=== PATIENT | female | born 1955 | race Caucasian/White ===

== ENCOUNTER 2019-07-18 06:00 | Outpatient (RCR) | payer MEDICARE, SELFPAY | END 2019-08-17 00:01 | LOC: SPT 06:00 | PROVIDERS: Family Provider Electrodiagnostic Medicine; Visit Provider Orthopaedic Surgery | DX: Z47.1 Aftercare following joint replacement surgery (principal); Z96.651 Presence of right artificial knee joint; M25.561 Pain in right knee; R26.89 Other abnormalities of gait and mobility; M25.661 Stiffness of right knee, not elsewhere classified | CPT/HCPCS: 97110 ×6 ==

== ENCOUNTER 2019-08-18 06:00 | Outpatient (RCR) | payer MEDICARE, SELFPAY | END 2019-08-25 23:00 | disposition home or self-care (01) | LOC: SPT 06:00 | PROVIDERS: Family Provider Electrodiagnostic Medicine; Visit Provider Orthopaedic Surgery | DX: Z47.1 Aftercare following joint replacement surgery (principal); Z96.651 Presence of right artificial knee joint | CPT/HCPCS: 97110 ==

== ENCOUNTER → 2019-09-08 13:05 | Outpatient (BNVA) | payer MEDICARE, SELFPAY | PROVIDERS: Family Provider Electrodiagnostic Medicine; Visit Provider Orthopaedic Surgery | DX: M25.562 Pain in left knee (principal) | CPT/HCPCS: 73560; 73565 ==

== ENCOUNTER 2019-09-10 06:52 | Outpatient (CLI) | payer MEDICARE, SELFPAY | END 2019-09-10 06:53 | disposition home or self-care (01) | LOC: RT 06:57 | PROVIDERS: Family Provider Electrodiagnostic Medicine; PCP Electrodiagnostic Medicine; Visit Provider Electrodiagnostic Medicine | DX: J44.1 Chronic obstructive pulmonary disease with (acute) exacerbation (principal); F41.1 Generalized anxiety disorder; J45.909 Unspecified asthma, uncomplicated | CPT/HCPCS: 94060; 94729; J7611 ==

== ENCOUNTER 2019-09-30 15:21 | Outpatient (CLI) | payer MEDICARE, SELFPAY ==
[2019-09-30 15:52] LABS: Hematocrit 39.4 % (37.0-47.0); Hemoglobin 12.1 g/dL (11.5-15.3); Mean Corpuscular HGB Conc 30.7 g/dL (30.0-36.0); Mean Corpuscular Hemoglobin 25.6 pg (28.0-34.0); Mean Corpuscular Volume 83.5 fL (81-99); Mean Platelet Volume 9.8 fL (7.4-10.4); Platelet Count 363 10^3/cmm (130-400); Red Blood Count 4.72 10^6/uL (4.1-5.3); Red Cell Distribution Width 14.5 % (12.1-15.1); White Blood Count 6.8 10^3/uL (4.0-10.0)
[2019-09-30 22:19] LABS: Absolute Eosinophils 0.1 10^3/cmm (0.0-0.7); Absolute Segmented Neutrophil 3.6 10/cmm (1.6-7.1); Basophils Absolute 0.1 10^3/cmm (0.0-0.2); Eosinophils 2 %; Lymphocytes 32 %; Monocytes Absolute 0.7 10^3/cmm (0.1-0.6); Platelet Estimate Normal (Normal); Segmented Neutrophils 54 %; Total Cells Counted 100 (0-100)
[2019-10-01 14:53] LABS: Immunoglobulin E 117 kU/L (<OR=114)
== END 2019-09-30 15:22 | disposition home or self-care (01) ==
LOC: LAB 15:25
PROVIDERS: Family Provider Electrodiagnostic Medicine; PCP Electrodiagnostic Medicine; Visit Provider Internal Medicine Critical Care Medicine
DX: J45.909 Unspecified asthma, uncomplicated (principal)
CPT/HCPCS: 82785; 85007; 85027

== ENCOUNTER 2019-12-02 12:07 | Outpatient (CLI) | payer MEDICARE, SELFPAY ==
[2019-12-03 16:05] LABS: Alternaria Alternata (M6) Ige <0.10 kU/L; Alternaria Class 0; Bermuda Class 0/1; Bermuda Grass (G2) Ige 0.23 kU/L; Cat Dander Class 3; D. Farinae Class 0; Dermatophagoides Class 0/1; Dermatophagoides Farinae (D2) <0.10 kU/L; Dermatophagoides Pteronyssinus 0.13 kU/L; Dog Dander (E5) Ige 5.47 kU/L; Dog Dander Class 3; Elm (T8) Ige 0.72 kU/L; Elm Class 2; English Plantain (W9) Ige 0.38 kU/L; English Plantain Class 1; House Dust (Greer) (H1) Ige 3.83 kU/L; House Dust (Hollister- Stier) 4.12 kU/L; House Dust Class 3; Immunoglobulin E 170 kU/L (<OR=114); Johnson Grass (G10) Ige 0.17 kU/L; Johnson Grass Cl 0/1; June Grass Class 0/1; June Grass(Kentucky Blue) (G8) 0.11 kU/L; Lamb'S Quarters Class 1; Maple (Box Elder) (T1) Ige 0.16 kU/L; Maple Class 0/1; Meadow Fescue Class 0/1; Mucor Racemosus Class 0; Oak (T7) Ige 0.18 kU/L; Oak Class 0/1; Orchard Grass (Cocksfoot) (G3) <0.10 kU/L; Penicillium Class 0; Penicillium Notatum (M1) Ige <0.10 kU/L; Perennial Rye Grass (G5) Ige <0.10 kU/L; Perennial Rye Grass Class 0; Ragweeed Class 0/1; Rough Marsh Elder (W16) Ige 0.57 kU/L; Rough Marsh Elder Class 1; Sweet Vernal Class 0/1; Sweet Vernal Grass (G1) Ige 0.13 kU/L; Timothy Grass (G6) Ige 0.12 kU/L; Timothy Grass Class 0/1
== END 2019-12-02 12:08 | disposition home or self-care (01) ==
LOC: LAB 12:10
PROVIDERS: Family Provider Electrodiagnostic Medicine; PCP Electrodiagnostic Medicine; Visit Provider Internal Medicine Critical Care Medicine
DX: R06.02 Shortness of breath (principal)
CPT/HCPCS: 36415; 82785; 86003

== ENCOUNTER → 2020-01-04 09:00 | Outpatient (BNVA) | payer MEDICARE, SELFPAY | PROVIDERS: Family Provider Electrodiagnostic Medicine; PCP Electrodiagnostic Medicine; Visit Provider Specialist | DX: G56.02 Carpal tunnel syndrome, left upper limb (principal); G56.22 Lesion of ulnar nerve, left upper limb | CPT/HCPCS: 95908 ==

== ENCOUNTER → 2020-02-10 09:17 | Outpatient (BNVA) | payer MEDICARE, SELFPAY | PROVIDERS: Family Provider Electrodiagnostic Medicine; PCP Electrodiagnostic Medicine; Visit Provider Specialist | DX: G56.22 Lesion of ulnar nerve, left upper limb (principal); G56.02 Carpal tunnel syndrome, left upper limb | CPT/HCPCS: G0463 ==

== ENCOUNTER 2020-02-28 14:39 | Outpatient (CLI) | payer MEDICARE, SELFPAY ==
[2020-02-29 20:18] LABS: Coronavirus Lab Test PTC N
== END 2020-02-28 14:40 | disposition home or self-care (01) ==
LOC: LAB 14:41
PROVIDERS: PCP Electrodiagnostic Medicine; Visit Provider Orthopaedic Surgery
DX: Z01.818 Encounter for other preprocedural examination (principal)
CPT/HCPCS: 87635

== ENCOUNTER 2020-03-08 05:46 | Day surgery (SDC) | payer MEDICARE, SELFPAY ==
--- NOTE | 2020-02-28 15:29 | PC.NURSE ---
PPE donned to include gown, gloves, goggles, and N95 mask. Patient's identity verified utilizing name and date of . Specimen collected labeled and taken to lab. Patient tolerated well.
[2020-02-29 13:15] VITALS: BMI 30.2
[2020-03-08] VITALS (8 sets, daily range): BP systolic 114–139; BP diastolic 69–87; PULSE 53–71; RESP 13–18; TEMP 36.4–36.6; O2SAT 97–100
--- NOTE | 2020-03-08 06:22 | ANES.PREANE2 ---
Pre-Anesthetic Assessment Pre-Anesthetic Assessment: Height/Weight: Height 1.52 m Weight 70.307 kg Temp Pulse Resp BP Pulse Ox 97.8 F 71 18 114/69 97 03/08/20 06:11 03/08/20 06:11 03/08/20 06:11 03/08/20 06:11 03/08/20 06:11 Preop Diagnosis: Left carpal tunnel syndrome, left cubital tunnel syndrome Proposed Procedure: Operation Date: 03/08/20 07:00 Proposed Procedures p Carpal Tunnel Release/[id number] G56.02 G56.22(Left) - Marito Lee MD s Ulna Nerve Decompression(Left) - Marito Lee MD Familial anesthetic complications: None Was Beta Shania taken within 24 hours: N/A Last intake: Intake Last Liquid Date 03/08/20 Last Liquid Time 03:00 Last Solid Date 03/07/20 Last Solid Time 19:00 Social: Social History: No alcohol and No tobacco Exam: Pre-Anes Outpt Exam: alert, oriented x 3, clear to auscultation bilaterally and regular rate & rhythm Airway: Cervical ROM: Other (cervical fusion) MP: 3 Additional comments: edentulous Pulmonary: Pulmonary: Asthma and COPD (steroids taken within the last year, admitted to hospital in july for exacerbation) CV/HEM: CV/HEM: DVT (spontaneous 2005 - no to blood thinner) Comments: I had a hole in my heart sealed at age 2 or 3 GI: GI: GERD Musc/skel: Musc/skel: OA/DJD Comments: cervical fusion Neuropsych: Neuropsych: Neuropathy Comments: dangelo's palsy 1971 Anesthetic Plan: ASA status: 2 Anesthesia: General Risk of > 500 ml blood loss (7ml/kg in children): No PFSH Anesthesia PFSH: Medical History (Updated 02/22/20 @ 10:24 by Caro Nolasco LPN) Asthma COPD (chronic obstructive pulmonary disease) GERD (gastroesophageal reflux disease) Trigger finger Surgical History H/O neck surgery History of bladder suspension procedure History of carpal tunnel surgery History of hysterectomy History of laparotomy Hx of LASIK Hx of tonsillectomy Status post total right knee replacement Family History Mother Lung disease COPD Heart disease Father Lung disease COPD Cirrhosis Sister Cancer Breast Other CAD (coronary artery disease) Diabetes Hypertension Denies family history of Stroke Social History Smoking and tobacco status: never smoked Second hand smoke exposure: Yes Alcohol intake: never Lives independently: Yes Household members: children Current occupational status: retired History of recent travel: No Current gender identity: Female Data Anesthesia Cardiac Studies: No Data to Display
[2020-03-08] MEDS: sodium chloride 0.9% 1,000 ML 30 ML IV (06:33)
--- NOTE | 2020-03-08 06:59 | W.PM.OPSUD ---
Surgery/Procedure H&P Update DATE OF PROCEDURE: March 08, 2020 DATE H&P PERFORMED: 02/22/20 PREOP DIAGNOSIS: Left carpal tunnel syndrome, left cubital tunnel syndrome PLANNED PROCEDURE: Operation Date: 03/08/20 07:00 Proposed Procedures p Carpal Tunnel Release/[id number] G56.02 G56.22(Left) - Marito Lee MD s Ulna Nerve Decompression(Left) - Marito Lee MD
[2020-03-08 07:29] LABS: Coronavirus Lab Test PTC NOT DETECTED
--- NOTE | 2020-03-08 08:23 | P.OP_ITS ---
Operative Report Date of procedure: March 08, 2020 Pre-op Diagnosis: Left carpal tunnel syndrome, left cubital tunnel syndrome Post-op diagnosis: same Post-op Findings: Same Procedure Done: Left ulnar nerve decompression, left carpal tunnel release Pathology: none sent Surgeon: Marito Lee Anesthesia: General Estimated blood loss (mL): 10 Tourniquet time (min): 19 Findings: No masses or space-occupying lesions were seen behind the medial epicondyle. Patient had scarring of the median nerve to the palmar fascia along the course of the incision but no masses or clear constricting bands were identified. Condition: stable Disposition: PACU Procedure: The patient was taken to the operating room and given a general anesthesia. A tourniquet was inflated to 250 mmHg. A timeout was performed. A 5 cm long incision was made behind the medial epicondyle. Dissection was accomplished bluntly under loupe magnification identifying the ulnar nerve proximally. Utilizing a hemostat the fascia over the nerve was elevated and incised proximally. Dissection was then carried distally behind the medial epicondyle and into the flexor carpi ulnaris musculature. Dissection was stopped with the first muscular branches identified. Elbow was brought through range of motion with the nerve seen to stay reduced behind the medial e picondyle. No formal transition was thought to be warranted. A timeout was performed. A slightly longer 5 cm long incision was made along the previous scar from the distal edge of the carpal tunnel extending proximally. The subcutaneous fat and palmar fascia was divided with a scalpel blade. Under loupe magnification the ulnar neurovascular bundle was identified distally. Through division of the scar tissue beneath the previous skin incision the ulnar nerve was identified adherent to that scar. Dissection was accomplished proximally with a blunt hemostat mobilizing the nerve from scar tissue to a point proximal to the wrist crease where it was found to be freely mobile. The tourniquet was deflated. Hemostasis provided with electrocautery through the wrist and elbow. Wound edges were infiltrated with 10 cc of a half percent Marcaine solution over each incision.. Skin edges of the elbow were reapproximated with running 3-0 Prolene and Steri-Strips. The wrist incision was closed with interrupted 3-0 Prolene. Sterile dressings were applied. The patient was taken to the recovery room in stable condition Wounds were irrigated with saline. Deep tissues were closed with 2-0 Vicryl. Subcutaneous is closed with 3-0 Vicryl. The skin was closed with a running 3-0 Prolene. Steri-Strips were applied. Xeroform gauze, 4 x 4's, compressive labral, and Santos wrap, and a sling were applied. The patient was taken recovery room in stable condition.
== END 2020-03-08 09:26 | disposition home or self-care (01) ==
PROVIDERS: PCP Electrodiagnostic Medicine; Visit Provider Orthopaedic Surgery
PROC: (CPT 64721; principal; 2020-03-08 07:00)
PROC: (CPT 64719; 2020-03-08 07:00)
DX: G56.02 Carpal tunnel syndrome, left upper limb (principal); G56.22 Lesion of ulnar nerve, left upper limb
CPT/HCPCS: 64719; 64721; 12345; 87635; J0690; J2704; J3010; J3490; J7030

== ENCOUNTER → 2020-05-22 14:25 | Outpatient (BNVA) | payer MEDICARE, SELFPAY | PROVIDERS: PCP Electrodiagnostic Medicine; Visit Provider Internal Medicine | DX: M19.90 Unspecified osteoarthritis, unspecified site (principal); Z79.899 Other long term (current) drug therapy; Z11.59 Encounter for screening for other viral diseases; R76.8 Other specified abnormal immunological findings in serum; D86.9 Sarcoidosis, unspecified | CPT/HCPCS: 36415; 80053; 82728; 84100; 85025; 86704; 86803; 86812; 87340; 99203 ==

== ENCOUNTER 2020-05-25 09:14 | Outpatient (CLI) | payer MEDICARE, SELFPAY ==
--- NOTE | 2020-05-25 09:34 | XR_ITS ---
WS: [id number] XR hand RT 2V [id number] REASON FOR EXAM: hand pain FINDINGS: Mild degenerative arthropathic change in the right DIP and MIP joints of the fingers and thumb manife sted as mild joint space narrowing and subchondral sclerosis. No significant deformity. More significant degenerative arthropathic changes seen in the right first metacarpal phalangeal join t with some deformity of the distal articular first metacarpal which is mildly subluxed laterally. Si milar but more severe changes are seen in the carpal metacarpal joint of the thumb. No soft tissue abnormality noted. XR/XR hand RT 2V [id number] IMPRESSION: Degenerative arthropathic change as above, predominantly in the right thumb.
--- NOTE | 2020-05-25 09:34 | XR_ITS ---
WS: [id number] XR foot RT 2V [id number] REASON FOR EXAM: foot pain FINDINGS: Mild narrowing of the right middle and distal interphalangeal joints of the second through fourth toe . There is mild subchondral sclerosis. No significant deformity. In the mid foot there are small osteophytic spurs with joint space narrowing and subchondral sclerosi s involving the navicular cuneiform articulations. In the hindfoot there is small enthesophyte at the origin of the plantar fascia from the calcaneus. T here is mild elongation of the posterior talus. XR/XR foot RT 2V [id number] IMPRESSION: Degenerative arthropathy as above.
--- NOTE | 2020-05-25 09:34 | XR_ITS ---
NOTE: Report was unsigned for reason: Order was edited. Original Signature date and time was: 05/25/20 @ 1111 WS: [id number] XR hip BI 2V wo/w pel [id number] REASON FOR EXAM: si pain FINDINGS: Left hip: The weightbearing portion of the left hip joint space demonstrates minimal narrowing. No significant osteophyte formation. No cortical disruption or focal bone lesion. No soft tissue abnormality. Right hip: The weightbearing portion of the right hip joint demonstrates minimal narrowing. No significant osteophyte formation. No cortical disruption or focal bone lesion. No soft tissue abnormality. [facility] XR/XR hip BI 3-4V wo/w pel [id number] IMPRESSION: Mild degenerative change in both hips.
--- NOTE | 2020-05-25 09:34 | XR_ITS ---
WS: [id number] XR hand LT 2V [id number] REASON FOR EXAM: hand pain FINDINGS: Degenerative arthropathy in the left fingers manifested as mild joint space narrowing and subchondral sclerosis. No significant deformity. Similar change seen in the second metacarpal phalangeal joint. There is a more severe narrowing of the joint space of the left first metacarpal phalangeal joint wit h deformity of the distal articular first metacarpal with mild lateral subluxation. Similar but milde r findings noted in the first carpal metacarpal joint. XR/XR hand LT 2V [id number] IMPRESSION: Degenerative arthropathy as above. Most prominently in the thumb.
--- NOTE | 2020-05-25 09:34 | XR_ITS ---
WS: [id number] XR foot LT 2V [id number] REASON FOR EXAM: foot pain FINDINGS: [id number] degenerative arthropathy in the DIP and MIP joints of the left second through the fi fth toes. There is joint space narrowing and subchondral sclerosis. There is mild deformity of the ar ticular portions of the distal phalange ease of the second through the fourth toes. In the mid foot there are degenerative arthropathic changes in the navicular cuneiform articulations with narrowing of the disc space, subchondral sclerosis, and small marginal osteophytes. In the hindfoot mild elongation of the posterior talus. Small these findings at the origin of the kike ntar fascia on the calcaneus. XR/XR foot LT 2V [id number] IMPRESSION: Mild degenerative arthropathic changes above.
== END 2020-05-25 09:15 | disposition home or self-care (01) ==
LOC: RAD 09:20
PROVIDERS: PCP Electrodiagnostic Medicine; Visit Provider Internal Medicine
DX: M79.641 Pain in right hand (principal); M25.551 Pain in right hip; M25.552 Pain in left hip; M12.842 Other specific arthropathies, not elsewhere classified, left hand; M12.872 Other specific arthropathies, not elsewhere classified, left ankle and foot; M12.871 Other specific arthropathies, not elsewhere classified, right ankle and foot
CPT/HCPCS: 73120; 73521; 73522; 73620

== ENCOUNTER → 2020-06-02 09:15 | Outpatient (BNVA) | payer MEDICARE, SELFPAY | PROVIDERS: PCP Electrodiagnostic Medicine; Visit Provider Internal Medicine | DX: M19.90 Unspecified osteoarthritis, unspecified site (principal); R76.8 Other specified abnormal immunological findings in serum; D86.9 Sarcoidosis, unspecified | CPT/HCPCS: 99213 ==

== ENCOUNTER 2020-11-23 10:22 | Emergency (ER) | payer MEDICARE, SELFPAY ==
[2020-11-23 10:25] VITALS: BP 162/80; PULSE 56; RESP 18; TEMP 36.4; O2SAT 97; BMI 31.2
--- NOTE | 2020-11-23 11:30 | XR_ITS ---
WS: [id number] Chest with left rib detail, 11/23/2020 Clinical Data: fall. left rib pain Comparison: Portable chest, 08/07/2019. Findings: The lungs show no nodules, masses, or effusions. The heart is normal. No pneumonia or pneumothorax is seen. The aortic arch and descending aorta show mild tortuosity. The patient has had an anterior cervical d isc fusion. There is a vena caval filter in position There are old left lateral third and fourth, fifth and sixth rib fractures.. No new rib fractures are seen. No subcutaneous emphysema is present. XR/XR ribs LT mn 3V w CXR1V [id number] Impression: 1. Atherosclerosis. 2. Old left lateral rib fractures but no new fractures are seen.
--- NOTE | 2020-11-23 11:40 | W.ED.FALL ---
HPI - Fall General: Chief Complaint: Fall Stated Complaint: Fall/rib pain Time Seen by Provider: 11/23/20 11:21 History of Present Illness: HPI Narrative: The patient is a 65-year-old female who comes to the ER after she fell yesterday. She was walking her large dog who chased after another dog and pulled her over on her left side. She landed on a exposed root over the ground and it hit her left ribs. She complains of pain there and went home and slept. Today she wakes up and the pain is still severe on her left lower ribs. History of COPD which makes her chronically short of breath she says it hurts to take deep breaths. Satting normal on room air. complaint: fall Onset (ago): hour(s) (18) Fall from: standing Loss of consciousness: None Prolonged down time: no Symptoms prior to fall: none Context: tripped/slipped Associated symptoms-after fall: Reports no associated symptoms; Denies abdominal pain, chest pain, confusion, difficulty walking, headache(s) or neck pain Review of Systems General: Reports: 10 or more systems reviewed and unremarkable except in HPI and below Const: Denies: fatigue Eyes: Denies: change in vision, blurry vision or eye redness ENMT: Denies: throat pain, swelling of lips/tongue, ear or mastoid pain or nasal congestion Card: Denies: chest pain, palpitations, irregular heart rhythm, edema, dyspnea on exertion or orthopnea Resp: Reports: dyspnea; Denies: productive cough or non-productive cough GI: Denies: abdominal pain, diarrhea or GI cramping : Denies: flank pain, difficulty voiding, urinary frequency or urinary urgency Musc: Denies: neck pain, back pain, extremity pain, joint pain, joint redness, limited range of motion or muscle weakness Skin/Breast: Denies: rash, pruritus, erythema, skin pain or skin tenderness Neuro: Denies: headache(s), numbness in extremities, weakness in extremities, sensory changes, difficulty walking, dizziness, confusion or Slurred speech present Psych: Denies: anxiety or depression Endo: Denies: polyuria All/Imm: Denies: urticaria, throat swelling or tongue swelling PFS ED PFSH: Medical History (Updated 11/23/20 @ 13:50 by Syd Rueda MD) Asthma COPD (chronic obstructive pulmonary disease) DVT (deep venous thrombosis) GERD (gastroesophageal reflux disease) Osteoarthritis low vitamin D -continue replacement RTC PRN Trigger finger Surgical History H/O neck surgery History of bladder suspension procedure History of carpal tunnel surgery History of hysterectomy History of laparotomy Hx of LASIK Hx of tonsillectomy Status post total right knee replacement Family History Mother Lung disease COPD Heart disease Father Lung disease COPD Cirrhosis Sister Cancer Breast Other CAD (coronary artery disease) Diabetes Hypertension Denies family history of Stroke Social History Smoking and tobacco status: never smoked Second hand smoke exposure: Yes Alcohol intake: never Lives independently: Yes Household members: children Marital status: Unknown Current occupational status: retired History of recent travel: No Current gender identity: Female Physical Exam Const: COMMON NORMALS: no acute distress, average body habitus, patient oriented x3, no limitations, healthy appearing, alert and well nourished GENERAL APPEARANCE: cooperative, comfortable, well kempt and well developed ORIENTATION/CONSCIOUSNESS: Yes awake, Yes oriented to person, Yes oriented to place and Yes oriented to time HENMT: COMMON NORMALS: normocephalic, external ears normal and Normal external nose present HEAD & SCALP: normal to inspection and normocephalic NOSE: Normal external nose present EXTERNAL EAR: Yes external ears normal MOUTH: Normal oral and palatal mucosa present THROAT: posterior oropharynx normal Eye: COMMON NORMALS: Equal, round and reactive pupils present and EOMs intact bilaterally GENERAL EYE: appearance normal, both eyes and all related structures PUPIL: Yes Equal, round and reactive pupils present Neck/C-Spine: COMMON NORMALS: full ROM, no lymphadenopathy, no meningeal signs and no JVD GENERAL: Yes normal visual inspection Lymph: LYMPHATIC: no lymphadenopathy noted Chest: COMMONS NORMALS: normal inspection of the chest and normal palpation of entire chest wall OTHER: Left lower rib tenderness. No significant bruising. No respiratory distress. Satting normal on room air Resp: COMMON NORMALS: normal respiratory effort, No retractions, No use of accessory muscles, clear to auscultation bilaterally and percussion normal EFFORT & INSPECTION: Yes able to speak in complete sentences AUSCULTATION: clear to auscultation bilaterally PERCUSSION: percussion normal Cardio: COMMON NORMALS: no JVD, regular rate, regular rhythm, S1 normal heart sound present, S2 normal heart sound present and Peripheral pulses 2+ throughout RATE: regular rate RHYTHM: regular rhythm HEART SOUNDS: S1 normal heart sound present and S2 normal heart sound present PERIPHERAL PULSES: Peripheral pulses 2+ throughout GI: COMMON NORMALS: Normal to inspection, nondistended, normoactive bowel sounds present, Soft to palpation, non-tender and no masses INSPECTION: Yes normal to inspection PALPATION: Yes Soft to palpation : COMMON NORMALS: Yes no CVA tenderness BLADDER/KIDNEY EXAM: Yes no CVA tenderness Back/Pelvis: COMMON NORMALS: no CVA tenderness, thoracic and lumbar spine normal to inspection, no thoracic nor lumbar tenderness and thoraco-lumbar ROM normal Extremity: COMMON NORMALS: normal to inspection, full ROM, capillary refill normal, no joint enlargement and no pedal edema GENERAL: Yes normal exam except as noted Neuro: COMMON NORMALS: patient oriented x3, CN's II-XII intact bilaterally, moves all extremities, no focal motor deficits, no sensory deficits noted and gait normal SENSORIUM/ORIENTATION: Yes alert, Yes oriented to person, Yes oriented to place and Yes oriented to time MENINGEAL SIGNS: Yes no meningeal signs Psych: COMMON NORMALS: mental status grossly normal, Normal thought process present, cooperative, normal affect and speech normal APPEARANCE: Yes well kempt ATTITUDE: Yes calm SPEECH: Yes normal speech THOUGHT PROCESS: Normal thought process present Skin: COMMON NORMALS: no rashes or lesions noted GENERAL SKIN EXAM: no rashes or lesions noted Course Vital Signs: Vital signs: Vital Signs Temperature 97.6 F 11/23/20 10:25 Pulse Rate 58 L 11/23/20 13:18 Respiratory Rate 15 11/23/20 13:18 Blood Pressure 178/88 11/23/20 13:18 Pulse Oximetry 97 11/23/20 13:18 MDM - Fall MDM Narrative: Medical decision making narrative: The patient has left lower rib pain and right eye pain as well as headache and neck pain from her fall. Imaging was normal and there are no fractures. Recommend she take hydrocodone for only severe pain and do not mix with drugs, alcohol, nor operate machinery while using that medication. Follow-up with primary care physician in a couple days to monitor improvement of her symptoms and return to the ER with worsening symptoms at any time. Discharge Plan Discharge Patient Disposition: Home Clinical Impression: Contusion of rib Condition: Stable Prescriptions: New hydrocodone-acetaminophen 5-325 mg tablet 1 tab PO Q6H PRN (Reason: pain) Qty: 10 RF: 0 No Action gabapentin 300 mg capsule 300 mg PO BID RF: 0 citalopram 20 mg tablet 20 mg PO QAM RF: 0 ipratropium-albuterol 0.5 mg-3 mg(2.5 mg base)/3 mL solution for nebulization 3 ml INHALATION QID PRN (Reason: Shortness Of Breath) RF: 0 omeprazole 40 mg capsule,delayed release(DR/EC) 40 mg PO DAILY PRN (Reason: Acid Reflux) RF: 0 acetaminophen [Tylenol Extra Strength] 500 mg tablet 1,000 mg PO PRN RF: 0 diphenhydramine HCl [Banophen] 25 mg capsule 25 - 50 mg PO PRN RF: 0 Spiriva Respimat 2.5 mcg/actuation mist 2 puff INHALATION DAILY 90 Days Qty: 12 RF: 3 Fasenra Pen 30 mg/mL auto-injector 30 mg SUBCUT Q28D 30 Days Qty: 2 RF: 11 Advair Diskus 250-50 mcg/dose Blister With Device 1 inh INHALATION BID RF: 0 Anti-Diarrhea 2 mg Tablet 2 mg PO PRN RF: 0 diclofenac sodium 75 mg tablet,delayed release (DR/EC) 75 mg PO BID PRN (Reason: Pain) RF: 0 Proventil HFA 90 mcg/actuation Hfa Aerosol Inhaler 2 puff INHALATION Q4H PRN (Reason: Shortness Of Breath) RF: 0 montelukast 10 mg tablet 10 mg PO QAM RF: 0 Discharge Orders: Discharge ED (Routine); Ordered 11/23/20 Ordered By: Syd Rueda Referrals: Vic Sauceda DO [Primary Care Provider] - Discharge Diet: Advance as tolerated Discharge Activity: Resume usual activity Patient Instructions: Contusion, Opioid Safety Activity Restrictions/Additional Instructions: He bruised your ribs on the left side. There are no fractures. Please follow-up with your doctor in a couple days and take the hydrocodone pills to help with your severe pain. Do not mix them with drugs, alcohol, nor operate machinery while taking them. Return to the ER with worsening symptoms at any time. Coding Level of Care Code ED Patient Services Clerk for Boby Olvera
--- NOTE | 2020-11-23 11:46 | CT_ITS ---
WS: [id number] CT CHEST TECHNIQUE: Noncontrast CT of the chest with coronal and sagittal reformatted images. CLINICAL INFORMATION: fall. left rib pain COMPARISON: None. DLP: 583.[address] scans at [facility] use at least one of these dose optimization techniques: automat ed exposure control; mA and/or kV adjustment per patient size (includes targeted exams where dose is matched to clinical indication); or iterative reconstruction. FINDINGS: Mild chronic emphysematous changes. No acute pulmonary infiltrates. No focal pneumonia or pleural flu id. Lung bases are well aerated. Normal caliber thoracic aorta. Multiple nondisplaced left upper ante rior rib fractures have a chronic appearance. No definite acute left-sided rib fractures. No pneumoth orax. Aberrant Right subclavian artery. Normal GE junction. IVC filter. Adrenal glands are normal. Mild tho racic kyphosis. Mild thoracic curve. CT/CT chest wo con [id number] IMPRESSION: 1. Multiple nondisplaced chronic appearing left upper anterolateral rib fractu res. No definite acute appearing left-sided rib fractures. 2. No pneumothorax. 3. Mild chronic emphysematous changes. No acute pulmonary infiltrates. 4. Incidental aberrant right subclavian artery.
--- NOTE | 2020-11-23 11:46 | CT_ITS ---
WS: [id number] CT ORBITS TECHNIQUE: Noncontrast CT of the orbits with coronal and sagittal reformatted images. CLINICAL INFORMATION: fall/ right eye pain COMPARISON: None. DLP: 390.[address] scans at [facility] use at least one of these dose optimization techniques: automat ed exposure control; mA and/or kV adjustment per patient size (includes targeted exams where dose is matched to clinical indication); or iterative reconstruction. FINDINGS: Mild soft tissue edema overlying the right orbit. Right orbit is normal in appearance. Normal lamina papyracea. Right lateral and inferior orbit are normal in appearance. No acute orbital fractures. Ant erior nasal bones appear normal. Both zygoma appear normal. Normal pterygoid plates. Normal visualize d posterior nasopharynx. Paranasal sinuses and mastoid air cells are well aerated. CT/CT orbit BI wo con* [id number] IMPRESSION: No acute facial fractures.
--- NOTE | 2020-11-23 11:46 | CT_ITS ---
WS: [id number] CT HEAD TECHNIQUE: Noncontrast CT of the head obtained from the skullbase to the vertex. CLINICAL INFORMATION: fall. head contusion COMPARISON: None. DLP: 808.[address] scans at [facility] use at least one of these dose optimization techniques: automat ed exposure control; mA and/or kV adjustment per patient size (includes targeted exams where dose is matched to clinical indication); or iterative reconstruction. FINDINGS: No evidence of intracranial hemorrhage or mass effect. Ventricular system and basal cisterns are mccullough nt. Mild small vessel changes with mild parenchymal volume loss. No extra-axial fluid collections. No evidence of mass or mass effect. Normal snider-white differentiation. Paranasal sinuses and mastoid air cells are well aerated. . Soft tissue edema overlying the right orb it. CT/CT head wo con* [id number] IMPRESSION: 1. No evidence of intracranial hemorrhage or mass effect. 2. Mild small vessel changes. Mild parenchymal volume loss. 3. No acute intracranial findings.
--- NOTE | 2020-11-23 11:52 | CT_ITS ---
WS: [id number] CT CERVICAL TRAUMA TECHNIQUE: Noncontrast CT of the cervical spine with coronal and sagittal reformatted images. CLINICAL INFORMATION: fall COMPARISON: None. DLP: 587.[address] scans at [facility] use at least one of these dose optimization techniques: automat ed exposure control; mA and/or kV adjustment per patient size (includes targeted exams where dose is matched to clinical indication); or iterative reconstruction. FINDINGS: Straightening of the normal cervical lordosis. Prior postoperative changes anterior interbody cervica l fusion C4-5. Interbody bony fusion C4-C7. Mild disc bulging C3-C4. Normal craniocervical junction. Normal C1-C2 articulation. Dens is normal in appearance. Normal occipital condyles. No high-grade spi nal canal narrowing. Normal C1 ring. No evidence of acute fracture or dislocation. Normal prevertebral soft tissues. CT/CT cervical spin wo con* [id number] IMPRESSION: No evidence of acute fracture or dislocation.
[2020-11-23 13:18] VITALS: BP 178/88; PULSE 58; RESP 15; O2SAT 97
[2020-11-23 13:58] VITALS: BP 165/94; PULSE 53; RESP 16; O2SAT 98
== END 2020-11-23 13:59 | disposition home or self-care (01) ==
PROVIDERS: Emergency Provider Family Medicine; PCP Electrodiagnostic Medicine
DX: S20.20XA Contusion of thorax, unspecified, initial encounter (principal); W18.39XA Other fall on same level, initial encounter; J44.9 Chronic obstructive pulmonary disease, unspecified; Z77.22 Contact with and (suspected) exposure to environmental tobacco smoke (acute) (chronic)
CPT/HCPCS: 70450; 70480; 71101; 71250; 72125; 99283

== ENCOUNTER 2021-01-25 08:37 | Outpatient (CLI) | payer MEDICARE, SELFPAY ==
--- NOTE | 2021-01-25 08:43 | MM_ITS ---
WS: [id number] Bilateral screening digital mammogram, 01/25/2021 Clinical Data: SCREENING Comparison: 03/05/2018 6 05/27/2016, 12/27/2013. Findings: The breast parenchymal pattern shows fat replacement. No spiculated masses or clustered calcification s are seen. There are no secondary signs of carcinoma. MM/[id number] Impression: 1. Negative bilateral mammogram unchanged. 2. Recommend annual screening mammograms. BIRADS: 1-Negative FOLLOW UP: 1 Year Follow-up The CAD aircraft delivery checker was used.
== END 2021-01-25 08:38 | disposition home or self-care (01) ==
LOC: RADSHAW 08:39
PROVIDERS: PCP Electrodiagnostic Medicine; Visit Provider Electrodiagnostic Medicine
DX: Z12.31 Encounter for screening mammogram for malignant neoplasm of breast (principal)
CPT/HCPCS: 77067

== ENCOUNTER → 2021-05-14 10:15 | Outpatient (BNVA) | payer MEDICARE, SELFPAY | PROVIDERS: PCP Electrodiagnostic Medicine; Visit Provider Nurse Practitioner Family | DX: Z20.822 Contact with and (suspected) exposure to COVID-19 (principal) | CPT/HCPCS: 87635 ==

== ENCOUNTER 2021-07-02 15:06 | Emergency (ER) | payer MEDICARE, SELFPAY ==
--- NOTE | 2021-07-02 15:10 | XR_ITS ---
WS: [id number] Exam: XR chest 1V portable [id number] Date/Time of Exam: 07/02/2021 3:20 PM Reason For Exam: SOB Comparison 11/23/2020. The lungs are clear and fully expanded. Normal cardiomediastinal silhouette. Probable small hiatal he rnia. Numerous old left rib fractures. No pleural effusion. Partially visualized IVC filter. XR/XR chest 1V portable [id number] IMPRESSION: 1. No acute cardiopulmonary finding. No change.
[2021-07-02 15:19] VITALS: BP 138/75; PULSE 63; RESP 18; TEMP 36.6; O2SAT 97; BMI 30.8
== END 2021-07-02 15:29 | disposition home or self-care (01) ==
LOC: ER 15:09
PROVIDERS: PCP Electrodiagnostic Medicine
DX: Z53.29 Procedure and treatment not carried out because of patient's decision for other reasons (principal)
CPT/HCPCS: 71045

== ENCOUNTER 2021-08-15 10:26 | Outpatient (CLI) | payer MEDICARE, SELFPAY ==
--- NOTE | 2021-08-15 11:07 | XR_ITS ---
WS: [id number] Abdomen series: PA CHEST AND 2 VIEWS OF THE ABDOMEN HISTORY: FLANK PAIN, RIGHT COMPARISON: None available. Mild pulmonary hyperexpansion. No focal mass or nodule. Healed rib fractures in the posterior lateral LEFT rib cage. No free air. Mild diffuse constipation. No calcifications are identified along the course of the uret er. Numerous calcifications in the pelvis consistent with phleboliths. IVC filter is noted just to the RIGHT of the spine. Enthesopathy of the iliac crest. No bone destruct ion. Moderate facet joint arthritis at L5-S1. XR/XR acute abdomen series [id number] IMPRESSION: 1. Moderate diffuse constipation. 2. No free air or obstruction. 3. No pneumonia.
== END 2021-08-15 10:27 | disposition home or self-care (01) ==
PROVIDERS: PCP Electrodiagnostic Medicine; Visit Provider Clinical Nurse Specialist Adult Health
DX: R10.9 Unspecified abdominal pain (principal); K59.00 Constipation, unspecified
CPT/HCPCS: 74022

== ENCOUNTER 2022-04-02 08:02 | Outpatient (CLI) | payer MEDICARE, SELFPAY ==
--- NOTE | 2022-04-02 08:11 | MM_ITS ---
WS: [id number] VIEWS: MLO and CC views both breasts. 3D digital tomosynthesis is also included in this exam. Comparison made with prior exam of 12/27/2013, 05/27/2016, 03/05/2018, 01/25/2021.. Findings: There was no sign of mass, architectural distortion or suspicious calcification in either breast. Fa [place]ty MM/[place] [id number] Impression: BI-RADS: 2-Benign FOLLOW-UP: 1 Year Follow-up This mammogram was also analyzed by the Computer Aided Detection System R2 Imag e Escort Service Attendant.
== END 2022-04-02 08:03 | disposition home or self-care (01) ==
LOC: RAD 08:03
PROVIDERS: PCP Electrodiagnostic Medicine; Visit Provider Electrodiagnostic Medicine
DX: Z12.31 Encounter for screening mammogram for malignant neoplasm of breast (principal)
CPT/HCPCS: 77063; 77067

== ENCOUNTER 2022-05-02 13:46 | Outpatient (CLI) | payer MEDICARE, SELFPAY ==
--- NOTE | 2022-05-02 13:56 | XR_ITS ---
WS: [id number] SCREENING DEXA SCAN [facility] CLINICAL INFORMATION: POST MENOPAUSAL COMPARISON: None. FINDINGS: The L1-L4 bone mineral density measures 0.945 g/cm2. This corresponds to a T score score of -2.0 and Z score of -0.5. Left femoral neck bone mineral density measures 0.732 g/cm2. This corresponds to a T score of -2.2 an d Z score of -0.9. Right femoral neck bone mineral density measures 0.782 g/cm2. This corresponds to a T score -1.8of an d Z score of -0.6. Mean femoral neck bone mineral density measures 0.757 g/cm2. This corresponds to a T score of -2.0 an d Z score of -0.8. XR/XR DEXA axial skeleton* [id number] IMPRESSION: Osteopenia lumbar spine. Osteopenia femoral necks. Patient's FRAX calculated 10 year probability for major osteoporotic fracture i s 14.5 % and osteoporotic hip fracture is 2.8%.
== END 2022-05-02 13:47 | disposition home or self-care (01) ==
LOC: RAD 13:50
PROVIDERS: PCP Electrodiagnostic Medicine; Visit Provider Electrodiagnostic Medicine
DX: Z78.0 Asymptomatic menopausal state (principal); M85.88 Other specified disorders of bone density and structure, other site
CPT/HCPCS: 77080

== ENCOUNTER 2023-01-17 09:35 | Outpatient (CLI) | payer MEDICARE, SELFPAY ==
--- NOTE | 2023-01-17 | ECG_ITS ---
[facility] Test Date: 2023-01-17 Pat Name: Sharri Young Department: Room: Gender: Female Stake Driver: : 1955 Requested By: Remi Sifuentes Order Number: [id number] Saul MD: Adina Melvin M.D. Interpretive Statements NAME OF STUDY: LEXISCAN STRESS TEST INDICATION: Shortness of Breath PROCEDURE: At the baseline, the blood pressure was 126/78 mmHg with a heart rate of 55 bpm. The electrocardiogram showed sinus bradycardia with normal ST and T's. The Lexiscan was infused over a period of 20 seconds. A total of 0.4 milligrams of Lexiscan was infused. The stress phase was continued for a total of 5 minutes. Heart rate at the end of the stress phase was 80 bpm with a blood pressure of 136/83 mmHg. The EKG at the peak infusion revealed sinus rhythm with no significant ST-T wave changes. Sestamibi was injected 20 seconds after the Lexiscan infusion. Blood pressure at the end of the recovery phase was 125/74 mmHg with a heart rate of 80 beats per minute. CONCLUSION: 1. No significant EKG changes with the LexiScan infusion. 2. No LexiScan induced chest pain or cardiac arrhythmia. 3. Normal blood pressure and heart rate response. 4. Sestamibi/sestamibi perfusion scan pending; see separate report. Electronically Signed On 01-29-2023 17:41:43 CDT by Adina Melvin M.D. [id number]
[2023-01-17 10:19] VITALS: BMI 30.2
--- NOTE | 2023-01-17 10:21 | NMCV_ITS ---
NM noah perf SPECT r/s* [id number] Sharri Young Age: 67 Gender: F : 1955 Exam Date: 01/17/2023 11:08 Ordering Phys: Remi Wood MD Technologist: GUIDO Luu Exam Location: [facility] Indications: SHORTNESS OF BREATH STRESS TEST Please see separate stress test report in [facility] for full findings IMAGE PROTOCOL Rest/Stress 1 Lexiscan Day Radiopharmaceutical Dose (mCi) Administration Site Administered by Rest: Tc-99m 10.7 IV Louis Welsh, ROLLED GLASS CROSSCUTTER Sestamibi Stress:Tc-99m 32.7 IV Louis Welsh, ROLLED GLASS CROSSCUTTER Sestamibi Rest: 17-Jan-2023 60 Discovery 630 Stress: 17-Jan-2023 30 Discovery 630 0.4mg Lexiscan. Images obtained in supine and prone position. SPECT RESULTS Technical Quality: Excellent Raw Data Analysis: Normal Image Corrections: No attenuation or motion correction applied Summed Stress Score: 5 Summed Rest Score: 0 Summed Difference Score: 5 PERFUSION FINDINGS Small sized reversible perfusion abnormality of mild severity of apical anterior and basal to mid inferolateral lee. FUNCTIONAL RESULTS (calculated via Gated SPECT) Stress Image LV EF (%): 70 Stress EDV (mL):97 TID: 1.03 Stress ESV (mL):29 FUNCTIONAL FINDINGS: The left ventricle is normal in size. Transient Ischemia Dilatation of 1. The left ventricular ejection fraction is normal with a value of 70%. There is normal left ventricular wall thickening. IMPRESSIONS 1. Small sized reversible perfusion abnormality of mild severity of apical anterior and basal to mid inferolateral lee. 2. This likely represent sub-diaphragmatic attenuation artifact. However, small area of ischemia in LAD artery territory cannot be ruled out. 3. Overall left ventricular systolic function is normal without regional wall motion abnormalities, LVEF=70%. 4. EKG portion of the study will be reported separately. Adina Melvin MD (Electronically Signed) Final Date: 19 January 2023 22:08 S
[2023-01-17] MEDS: regadenoson 0.4 Mg/5 ml Syringe IVP (11:40)
[2023-01-17] MEDS: ondansetron 2 mg/ML SDV 2 mL 4 MG IVP (11:47)
[2023-01-17 11:54] VITALS: BP 125/74; PULSE 78
== END 2023-01-17 09:36 | disposition home or self-care (01) ==
LOC: CDL 09:35
PROVIDERS: PCP Electrodiagnostic Medicine; Visit Provider Internal Medicine Pulmonary Disease
DX: R06.02 Shortness of breath (principal); R94.39 Abnormal result of other cardiovascular function study
CPT/HCPCS: 36415; 78452; 93017; 96375; A9500; J2405; J2785

== ENCOUNTER → 2023-03-12 12:43 | Outpatient (BNVA) | payer MEDICARE, SELFPAY | PROVIDERS: PCP Electrodiagnostic Medicine; Visit Provider Internal Medicine | DX: R07.9 Chest pain, unspecified (principal) | CPT/HCPCS: 93005; 99204 ==

== ENCOUNTER 2023-03-25 12:48 | Outpatient (CLI) | payer MEDICARE, SELFPAY ==
--- NOTE | 2023-03-25 13:00 | USCV_ITS ---
Sharri Young Age: 67 Gender: F : 1955 Exam Date: 03/25/2023 13:42 Ordering Phys: Cristian Diaz M.D ([email or web address]) Technologist: Surendra Mahajan Exam Location: [facility] [place] Indication: sob BP: 140 / 80 HR: 54 Rhythm: Sinus Technical Quality: Adequate MEASUREMENTS (Male / Female) Normal Values 2D ECHO LVOT Diameter 2.0 cm LV Ejection Fraction MOD 2C 66.1 % LV Ejection Fraction 2C AL 67.5 % LA Diameter 3.1 cm LA Width 3.6 cm LA Height 4.4 cm RA Width 3.5 cm RA Height 4.2 cm Aorta at Sinotubular Diameter 2.0 cm IVC Diameter 1.7 cm M-MODE Aortic Annulus Diameter 2.5 cm LA Ao Ratio MM 1.3 MV E Point Septal Separation 0.5 cm DOPPLER AV Peak Velocity 164.7 cm/s LVOT Peak Velocity 95.0 cm/s AV Area Cont Eq vti 1.8 cm squared AV Area Cont Eq pk 1.8 cm squared MV Peak Velocity 152.0 cm/s MV Area PHT 4.1 cm squared Mitral E to A Ratio 1.1 MV E' Velocity 54.0 cm/s Mitral E to MV E' Ratio 10.8 Mitral E to LV E' Lateral Ratio 14.5 Mitral E to LV E' Septal Ratio 8.6 TR Peak Velocity 447.0 cm/s TR Peak Gradient 79.9 mmHg TR Mean Velocity 337.1 cm/s TR Mean Gradient 49.6 mmHg TR Velocity Time Integral 134.4 cm Right Atrial Pressure 3.0 mmHg Pulmonary Artery Systolic Pressu 82.9 mmHg PV Peak Velocity 124.7 cm/s RV Acceleration Time 0.1 s RV Ejection Time 0.4 s RV AcT/ET 0.4 FINDINGS Left Ventricle Left ventricle is normal in size. LV systolic function is normal with EF of 55 to 60%. No regional wall motion abnormalities are seen. Right Ventricle Normal in size and function Right Atrium Normal in size Left Atrium Normal in size Mitral Valve Mild mitral annular calcification. Trace mitral regurgitation Aortic Valve Structurally normal aortic valve. No significant stenosis or regurgitation seen. Tricuspid Valve Mild tricuspid regurgitation. Insufficient TR jet to calculate RVSP Pulmonic Valve Not well visualized Pericardium Normal Aorta Normal in size IVC Appears to be normal CONCLUSIONS LV systolic function is normal with EF of 55 to 60%. Trace mitral regurgitation Mild tricuspid regurgitation No comparison studies are available. Cristian Diaz MD (Electronically Signed) Final Date: 03 April 2023 17:45 S
== END 2023-03-25 12:49 | disposition home or self-care (01) ==
PROVIDERS: PCP Electrodiagnostic Medicine; Visit Provider Internal Medicine
DX: I08.1 Rheumatic disorders of both mitral and tricuspid valves (principal); R06.02 Shortness of breath
CPT/HCPCS: 93306

== ENCOUNTER 2023-07-03 10:43 | Outpatient (CLI) | payer MEDICARE, SELFPAY ==
--- NOTE | 2023-07-03 10:54 | MR_ITS ---
WS: [id number] MRI LUMBAR SPINE NONCONTRAST HISTORY: LUMBAR INTERVETEBRAL DISC DEGENERATION COMPARISON: None available. TECHNIQUE: Sagittal and axial multisequence imaging is submitted. Mild curvature lumbar spine with increase in the lumbar lordosis. Disc spaces are mildly narrowed and desiccated. No acute fracture or marrow edema. Conus terminates normally at L1-2 disc level. L1-L2: Very mild foraminal narrowing. No high-grade stenosis. L2-L3: Mild annular disc bulging with a RIGHT paracentral disc protrusion. Moderate ligamentum flavum and facet arthritis. Trefoil appearance of the thecal sac and subarticular recess stenosis. Moderate central, RIGHT subarticular recess and RIGHT foraminal stenosis. Mild LEFT foraminal stenosis. L3-L4: Diffuse annular disc bulging with a focal central disc protrusion. Marked ligamentum flavum an d facet arthritis. Disc encroachment and narrowing of the subarticular recesses and foramina. Moderat e central and bilateral subarticular recess stenosis. Mild foraminal stenosis. L4-L5: Marked annular disc bulging with a moderate size central disc protrusion. Moderate ligamentum flavum and facet arthritis. Severe central, bilateral subarticular recess and foraminal stenosis, LEF T greater than RIGHT. L5-S1: Mild facet arthritis. No stenosis. Prior cholecystectomy with mild common bile duct dilatation. IMPRESSION: 1. L4-5: Severe central, bilateral subarticular recess and foraminal stenosis, LEFT greater than RIGH T. Additional central disc protrusion with facet arthritis contributing to the stenosis. 2. L3-4: Moderate central, bilateral subarticular recess and mild foraminal stenosis. Focal central d isc protrusion with marked ligamentum flavum and facet disease. 3. L2-3: Moderate central with RIGHT subarticular recess and RIGHT foraminal stenosis. Mild stenosis on the LEFT. 4. Increase in the lumbar lordosis. No fractures. 5. Multilevel areas of ligamentum flavum and facet arthritis.
== END 2023-07-03 10:44 | disposition home or self-care (01) ==
LOC: RAD 10:43
PROVIDERS: PCP Electrodiagnostic Medicine; Visit Provider Electrodiagnostic Medicine
DX: M51.36 Other intervertebral disc degeneration, lumbar region (principal); M48.061 Spinal stenosis, lumbar region without neurogenic claudication; M47.816 Spondylosis without myelopathy or radiculopathy, lumbar region; M40.56 Lordosis, unspecified, lumbar region; M51.26 Other intervertebral disc displacement, lumbar region
CPT/HCPCS: 72148

== ENCOUNTER → 2023-10-14 13:25 | Outpatient (BNVA) | payer MEDICARE, SELFPAY | PROVIDERS: PCP Electrodiagnostic Medicine; Referring Provider Family Medicine; Visit Provider Physician Assistant | DX: S62.306A Unspecified fracture of fifth metacarpal bone, right hand, initial encounter for closed fracture; W01.0XXA Fall on same level from slipping, tripping and stumbling without subsequent striking against object, initial encounter; Z46.89 Encounter for fitting and adjustment of other specified devices; S62.316D Displaced fracture of base of fifth metacarpal bone, right hand, subsequent encounter for fracture with routine healing; X58.XXXD Exposure to other specified factors, subsequent encounter | CPT/HCPCS: 26600; 73130; 97760; 99203; L3984 ==

== ENCOUNTER 2023-10-14 14:59 | Outpatient (CLI) | payer MEDICARE, SELFPAY | END 2023-10-14 15:00 | disposition home or self-care (01) | LOC: SPT 15:00 | PROVIDERS: PCP Electrodiagnostic Medicine; Visit Provider Physician Assistant | DX: Z46.89 Encounter for fitting and adjustment of other specified devices (principal); S62.316D Displaced fracture of base of fifth metacarpal bone, right hand, subsequent encounter for fracture with routine healing; X58.XXXD Exposure to other specified factors, subsequent encounter | CPT/HCPCS: 26600; 97760; 99203; L3984 ==

== ENCOUNTER → 2023-10-30 15:14 | Outpatient (BNVA) | payer MEDICARE, SELFPAY | PROVIDERS: PCP Electrodiagnostic Medicine; Visit Provider Physician Assistant | DX: S62.306A Unspecified fracture of fifth metacarpal bone, right hand, initial encounter for closed fracture (principal); X58.XXXA Exposure to other specified factors, initial encounter | CPT/HCPCS: 73120; 99213 ==

== ENCOUNTER → 2023-11-14 11:16 | Outpatient (BNVA) | payer MEDICARE, SELFPAY | PROVIDERS: PCP Electrodiagnostic Medicine; Visit Provider Physician Assistant | DX: S62.306A Unspecified fracture of fifth metacarpal bone, right hand, initial encounter for closed fracture (principal); X58.XXXA Exposure to other specified factors, initial encounter | CPT/HCPCS: 73130; 99213 ==

== ENCOUNTER 2023-11-28 06:00 | Outpatient (CLI) | payer MEDICARE, SELFPAY | END 2023-11-28 06:01 | LOC: SOT 12-01 09:44 | PROVIDERS: PCP Electrodiagnostic Medicine; Visit Provider Student in an Organized Health Care Education/Training Program | DX: Z46.89 Encounter for fitting and adjustment of other specified devices (principal); S62.306D Unspecified fracture of fifth metacarpal bone, right hand, subsequent encounter for fracture with routine healing; X58.XXXD Exposure to other specified factors, subsequent encounter | CPT/HCPCS: 99213 ==

== ENCOUNTER → 2023-11-28 09:56 | Outpatient (BNVA) | payer MEDICARE, SELFPAY | PROVIDERS: PCP Electrodiagnostic Medicine; Visit Provider Student in an Organized Health Care Education/Training Program | DX: S62.306A Unspecified fracture of fifth metacarpal bone, right hand, initial encounter for closed fracture (principal); X58.XXXA Exposure to other specified factors, initial encounter; M18.9 Osteoarthritis of first carpometacarpal joint, unspecified; Z46.89 Encounter for fitting and adjustment of other specified devices; S62.306D Unspecified fracture of fifth metacarpal bone, right hand, subsequent encounter for fracture with routine healing; X58.XXXD Exposure to other specified factors, subsequent encounter | CPT/HCPCS: 73130; 99213 ==

== ENCOUNTER 2023-12-19 10:11 | Outpatient (CLI) | payer MEDICARE, SELFPAY ==
[2023-12-19 10:33] LABS: Basophils % 0.2 %; Hematocrit 28.7 % (36-47); Lymphocytes # 1.2 10^3/uL (0.8-4.8); Lymphocytes % 22.8 %; Mean Corpuscular HGB Conc 27.9 g/dL (30-55); Mean Corpuscular Hemoglobin 20.4 pg (27-33); Mean Corpuscular Volume 73.2 fl (85-98); Monocytes # 0.6 10^3/uL (0.2-0.9); Monocytes % 10.7 %; Neutrophils # 3.59 10^3/uL (1.8-7.7); Neutrophils % 66.1 %; Nucleated Red Blood Cells % 0 %; Platelet Count 316 10^3/cmm (157-399); Red Blood Count 3.92 10^6/uL (3.85-5.65); Red Cell Distribution Width 17.9 % (12.1-15.1); White Blood Count 5.43 10^3/uL (3.29-11.43)
[2023-12-19 10:48] LABS: Alanine Aminotransferase < 5 U/L (0-33); Albumin Level 3.9 g/dL (3.5-5.2); Alkaline Phosphatase 81 U/L (35-105); Anion Gap 14.3 (5-19); Aspartate Amino Transferase 17 U/L (0-32); Blood Urea Nitrogen 15 mg/dL (8-23); Calcium 8.3 mg/dL (8.5-10.5); Carbon Dioxide 26 mmol/L (22-29); Chloride 110 mmol/L (98-107); Globulin 2.7 g/dL (1.3-4.6); Glomerular Filtration Rate 70.9 mL/min (90-130); Glucose 118 mg/dL (65-115); Osmolality Calculated 304 mOsm/kg (285-295); Potassium 4.3 mmol/L (3.5-5.1); Sodium 146 mmol/L (136-145); Total Bilirubin 0.2 mg/dL (0.15-1.2); Total Protein 6.6 g/dL (6.6-8.7)
== END 2023-12-19 10:12 | disposition home or self-care (01) ==
LOC: LAB 10:13
PROVIDERS: PCP Electrodiagnostic Medicine; Visit Provider Student in an Organized Health Care Education/Training Program
DX: D49.81 Neoplasm of unspecified behavior of retina and choroid (principal); Z79.899 Other long term (current) drug therapy
CPT/HCPCS: 36415; 80053; 85025

== ENCOUNTER 2024-01-06 13:59 | Outpatient (CLI) | payer MEDICARE, SELFPAY ==
--- NOTE | 2024-01-06 14:05 | MR_ITS ---
WS: [id number] MRI HEAD AND ORBITS WITHOUT AND WITH GADOLINIUM ENHANCEMENT TECHNIQUE: Noncontrast axial T1, axial T2 FSE fat sat, coronal T2 fat sat, coronal T1, coronal T1 fat sat, sagittal T2 fat sat, plus contrast enhanced coronal, sagittal, and axial T1 fat sat images obta ined. High-resolution imaging of the orbits with fat saturation technique. 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 FINDINGS: Some images graded by motion. No evidence of restricted diffusion to suggest acute ischemia. Ventricular system and basilar cistern s are patent Mild small vessel changes. Mild parenchymal volume loss. Normal posterior fossa. Normal vascular flow voids at the skull base. No extra-axial fluid collections. No mass of mass or mass effect. Paranasal sinuses and mastoid air cells are well aerated. Mild mucosal thickening in the mastoid tips. Normal optic chiasm and pituitary infundibulum. No evidence of intraorbital or intraconal mass. Globe s are normal in appearance. No visualized enhancing retinal lesion. Normal cavernous sinuses and Meck el's cave. Normal rectus muscles. Small enhancing extra-axial lesion along the RIGHT middle cranial fossa anterior temporal lobe most c onsistent with a small meningioma measuring approximately 8.1 x 5.7 x 6.5 mm. No underlying edema. Re commend 12-month follow-up. MR/MR orbit face neck wo/w* [id number] IMPRESSION: 1. No evidence of restricted diffusion to suggest acute ischemia. 2. Minimal small vessel changes with mild parenchymal volume loss. 3. No evidence of intraorbital or intraconal mass. No enhancing intraorbital l esions. 4. Normal optic chiasm and pituitary infundibulum. 5. 8.1 x 5.7 x 6.5 mm meningioma along the RIGHT middle cranial fossa. Recomme nd 12-month follow-up. 6. No other suspicious findings.
== END 2024-01-06 14:00 | disposition home or self-care (01) ==
LOC: RAD 13:59
PROVIDERS: PCP Student in an Organized Health Care Education/Training Program; Visit Provider Student in an Organized Health Care Education/Training Program
DX: D32.0 Benign neoplasm of cerebral meninges (principal)
CPT/HCPCS: 70543; A9577

== ENCOUNTER → 2024-08-06 10:47 | Outpatient (BNVA) | payer MEDICARE, MEDICAID, SELFPAY | PROVIDERS: PCP Family Medicine; Visit Provider Family Medicine | DX: J45.51 Severe persistent asthma with (acute) exacerbation (principal); Z79.52 Long term (current) use of systemic steroids; J45.50 Severe persistent asthma, uncomplicated; I82.409 Acute embolism and thrombosis of unspecified deep veins of unspecified lower extremity; Z13.6 Encounter for screening for cardiovascular disorders; D50.9 Iron deficiency anemia, unspecified; M19.90 Unspecified osteoarthritis, unspecified site; F32.1 Major depressive disorder, single episode, moderate; G25.81 Restless legs syndrome | CPT/HCPCS: 80053; 80061; 82728; 83550; 85025 ==

== ENCOUNTER 2024-09-15 10:00 | Oncology outpatient (recurring) (ONCR) | payer MEDICARE, SELFPAY ==
[2024-09-06 14:28] VITALS: BP 175/94; PULSE 76; RESP 17; TEMP 36.6; O2SAT 97
[2024-09-06] MEDS: sodium chloride 0.9% 250 ML 75 ML IV (14:41)
[2024-09-06] MEDS: iron sucrose 200 MG in sodium chloride 0.9% 50 ML 240 MG IV (14:41)
[2024-09-06 15:15] VITALS: BP 154/90; PULSE 71; RESP 18; TEMP 36.4; O2SAT 96
[2024-09-08] MEDS: sodium chloride 0.9% 250 ML IV (12:14)
[2024-09-08] MEDS: iron sucrose 200 MG in sodium chloride 0.9% 50 ML 240 MG IV (12:14)
[2024-09-10 10:06] VITALS: BP 132/80; PULSE 77; RESP 17; TEMP 36.6; O2SAT 95
[2024-09-10] MEDS: iron sucrose 200 MG in sodium chloride 0.9% 50 ML 160 MG IV (10:18)
[2024-09-13] MEDS: iron sucrose 200 MG in sodium chloride 0.9% 50 ML 240 MG IV (08:59)
[2024-09-13 09:36] VITALS: BP 168/77; PULSE 66; RESP 16; TEMP 36.5; O2SAT 99
[2024-09-15 09:56] VITALS: BP 142/81; PULSE 61; RESP 17; TEMP 36.1; O2SAT 94
[2024-09-15] MEDS: iron sucrose 200 MG in sodium chloride 0.9% 50 ML 240 MG IV (10:15)
[2024-09-15 10:44] VITALS: BP 134/86; PULSE 65; RESP 18; TEMP 36.4; O2SAT 97
== END 2024-09-17 23:59 | disposition home or self-care (01) ==
PROVIDERS: PCP Family Medicine; Visit Provider Family Medicine
DX: Z53.9 Procedure and treatment not carried out, unspecified reason (principal); D50.9 Iron deficiency anemia, unspecified; Z79.899 Other long term (current) drug therapy
CPT/HCPCS: 96365; J1756; J7050

== ENCOUNTER → 2024-12-01 13:20 | Outpatient (BNVA) | payer OTHER, SELFPAY | PROVIDERS: PCP Family Medicine; Visit Provider Family Medicine | DX: J45.51 Severe persistent asthma with (acute) exacerbation (principal); Z79.52 Long term (current) use of systemic steroids; D50.9 Iron deficiency anemia, unspecified; G25.81 Restless legs syndrome; M19.90 Unspecified osteoarthritis, unspecified site; J45.50 Severe persistent asthma, uncomplicated; F32.1 Major depressive disorder, single episode, moderate; Z79.899 Other long term (current) drug therapy | CPT/HCPCS: 80053; 80061; 82728; 83550; 85025 ==